=== PATIENT | female | born 1965 | race Hispanic/Latino ===

== ENCOUNTER 2019-01-23 06:39 | Emergency (ER) | payer OTHER ==
[2019-01-23 07:13] VITALS: RESP 16; O2SAT 98
--- NOTE | 2019-01-23 08:30 | ED PDOC ---
History of Present Illness History of Present Illness: 53 year old female with no past medical history presents to the ED complaining of cough and congestion for 5 days. Denies any associated chest pain. Patient also complains of difficulty breathing at time, and notes the cough is somewhat productive. Otherwise patient denies any leg swelling, palpitations, fevers, chills, nausea, vomiting, diarrhea, or other associated symptoms. Additionally patient describes having recurrent episodes of dizziness, which she attributes to vertigo. Patient has no dizziness at present. Of note, patient has been homeless since October. She did not receive a flu shot this year. PMD: None HPI: Influenza Time Seen by Provider: 01/23/19 07:26 Chief Complaint: Cough, Cold, Congestion Chief Complaint (Provider): Cough, Cold, Congestion History Per: Patient Exam Limitations: no limitations Onset/Duration Of Symptoms: Days (x 5) Symptoms include: cough, nasal congestion, difficulty breathing Hx Influenza Vaccination: No Risk factors for flu complications: No: adult > 65 years Past Medical History Reviewed: Historical Data, Nursing Documentation, Vital Signs Vital Signs: Last Vital Signs Temp 98.4 F 01/23/19 07:09 Pulse 89 01/23/19 07:09 Resp 16 01/23/19 07:09 BP 105/68 01/23/19 07:09 Pulse Ox 98 01/23/19 07:09 - Medical History PMH: No Chronic Diseases - Surgical History Surgical History: No Surg Hx - Family History Family History: States: Unknown Family Hx - Social History Current smoker - smoking cessation education provided: No Drugs: Denies - Home Medications Home Medications: Ambulatory Orders Medication Instructions Recorded Azithromycin [Z-Alan] 250 mg PO ASDIR #6 tab 01/23/19 - Allergies Allergies/Adverse Reactions: Allergies Allergy/AdvReac Type Severity Reaction Status Date / Time No Known Allergies Allergy Verified 01/23/19 07:56 Review of Systems ROS Statement: Except As Marked, All Systems Reviewed And Found Negative Constitutional: Negative for: Fever, Chills ENT: Positive for: Nose Congestion Cardiovascular: Negative for: Chest Pain Respiratory: Positive for: Cough, Shortness of Breath, Sputum Gastrointestinal: Negative for: Nausea, Vomiting, Diarrhea Skin: Negative for: Rash Neurological: Negative for: Weakness, Numbness, Headache Physical Exam - Reviewed Nursing Documentation Reviewed: Yes Vital Signs Reviewed: Yes - Physical Exam Appears: Positive for: Well, Non-toxic, No Acute Distress Head Exam: Positive for: ATRAUMATIC, NORMOCEPHALIC Skin: Positive for: Normal Color, Warm, DRY Eye Exam: Positive for: EOMI, Normal appearance, PERRL ENT: Positive for: Normal ENT Inspection. Negative for: Pharyngeal Erythema, Tonsillar Exudate Neck: Positive for: Normal, Supple Cardiovascular/Chest: Positive for: Regular Rate, Rhythm. Negative for: Murmur Respiratory: Positive for: Normal Breath Sounds. Negative for: Accessory Muscle Use, Rhonchi, Wheezing, Respiratory Distress Pulses-Radial (L): 2+ Pulses-Radial (R): 2+ Gastrointestinal/Abdominal: Positive for: Normal Exam, Soft. Negative for: Tenderness Back: Negative for: L CVA Tenderness, R CVA Tenderness Extremity: Positive for: Normal ROM. Negative for: Calf Tenderness, Swelling Neurological/Psych: Positive for: Awake, Alert, Oriented (x3) Medical Decision Making Medical Decision Making: Initial Impression: Cough Differential diagnosis includes but is not limited to: bronchitis, pneumonia, flu Initial Plan: - Chest x-ray - Flu swab CXR: No acute cardiopulmonary disease appreciated. Serology reviewed: + Flu B Clinical Impression: Flu, Bronchitis Patient is outside the window for Tamiflu. Upon provider reevaluation patient is resting comfortably, is medically stable, and requires no further treatment in the ED at this time. Patient will be discharged home with Rx for Zithromax. Counseling was provided and all questions were answered regarding diagnosis and need for follow up with PMD/the clinic. There is agreement to discharge plan. Return if symptoms persist or worsen. Scribe Attestation: Documented by Joelle Demarco, acting as a scribe for Alex Elder MD. Provider Scribe Attestation: All medical record entries made by the Scribe were at my direction and personally dictated by me. I have reviewed the chart and agree that the record accurately reflects my personal performance of the history, physical exam, medical decision making, and the department course for this patient. I have also personally directed, reviewed, and agree with the discharge instructions and disposition. - ECG O2 Sat by Pulse Oximetry: 98 - Progress Re-evaluation Time: 12:20 Condition: Re-examined, Improved Disposition - Clinical Impression Clinical Impression: Bronchitis Counseled Patient/Family Regarding: Studies Performed, Diagnosis, Need For Followup, Rx Given - Disposition Referrals: [facility] [Outside] Disposition: Routine/Home Disposition Time: 12:21 Condition: GOOD Additional Instructions: SHAUN UNGER, thank you for letting us take care of you today. Your provider was Alex Elder MD and you were treated for FLU-LIKE SYMPTOMS. The emergency medical care you received today was directed at your acute symptoms. If you were prescribed any medication, please fill it and take as directed. It may take several days for your symptoms to resolve. Return to the Emergency Department if your symptoms worsen, do not improve, or if you have any other problems. Please contact your doctor or call one of the physicians/clinics you have been referred to that are listed on the Patient Visit Information form that is included in your discharge packet. Bring any paperwork you were given at discharge with you along with any medications you are taking to your follow up visit. Our treatment cannot replace ongoing medical care by a primary care provider outside of the emergency department. Thank you for allowing the [facility] team to be part of your care today. Prescriptions: Azithromycin [Z-Alan] 250 mg PO ASDIR #6 tab Instructions: Acute Bronchitis - POA Present On Arrival: None
--- NOTE | 2019-01-23 08:58 | RAD ---
Date of service: 01/23/2019 HISTORY: cough COMPARISON: No prior. TECHNIQUE: Chest PA and lateral views FINDINGS: LUNGS: No active pulmonary disease. PLEURA: No significant pleural effusion identified. No pneumothorax apparent. CARDIOVASCULAR: No aortic atherosclerotic calcification present. Normal cardiac size. No pulmonary vascular congestion. OSSEOUS STRUCTURES: No significant abnormalities. VISUALIZED UPPER ABDOMEN: Normal. OTHER FINDINGS: None. IMPRESSION: No acute cardiopulmonary disease appreciated.
[2019-01-23 13:02] VITALS: BP 94/60; PULSE 80; TEMP 98.5
--- NOTE | 2019-01-25 14:10 | CARD ---
APPROVED REPORT Date of service: 01/23/2019 EKG Measurement Heart [id number] ID [id number] <Conclusion> Normal sinus rhythm Normal ECG
== END 2019-01-23 12:59 | disposition home or self-care (01) ==
LOC: H.ER 06:39
DX: J40 Bronchitis, not specified as acute or chronic (principal)